=== PATIENT | female | born 1985 | race Hispanic/Latino ===

== ENCOUNTER 2016-05-06 08:17 | Emergency (ER) | payer SELFPAY ==
[2016-05-06 08:30] VITALS: TEMP 98.3; O2SAT 99
[2016-05-06] MEDS ORDERED: KETOROLAC TROMETHAMINE INJ 60 MG/2 ML VIAL IM ONE (08:47)
[2016-05-06] MEDS ORDERED: diazePAM INJ 10 MG/2 ML SYG IM ONE (08:47)
[2016-05-06] MEDS ORDERED: HYDROcodone 10MG/APAP 325MG 1 EA TAB PO ONE (08:48)
--- NOTE | 2016-05-06 08:51 | ED.PDOC ---
History of Present Illness - General Chief Complaint: Back Pain or Injury Stated Complaint: back pain/spasms Time Seen by Provider: 05/06/16 08:41 Source: patient Exam Limitations: no limitations - History of Present Illness Initial Comments: PT REPORTS A 3 WK HISTORY OF LOWER BACK PAIN THAT ACUTELY BECAME WORSE OVER THE PAST 24 HOURS. PT REPORTS SEVERAL YEAR HISTORY OF CHRONIC INTERMITTENT LOW BACK PAIN AND STATES THAT SHE WAS DIAGNOSED WITH SPONDYLOSIS. PT REPORTS USING ALTERNATING ASPIRIN AND TYLENOL WITHOUT RELIEF. Timing/Duration: constant, getting worse Quality/Severity: severe, dullness, radiation - TO BILATERAL HIPS Back Pain Location: lumbar spine Improving Factors: immobilization, medication Worsening Factors: movement Associated Symptoms: muscle spasms Allergies/Adverse Reactions: Allergies NO KNOWN ALLERGY Allergy (Verified 05/06/16 08:30) Home Medications: Ambulatory Orders Acetaminophen W/ Codeine [Tylenol W/ CODEINE #3] 1 ea PO Q4HR PRN #24 05/06/16 Diazepam [Valium] 2 mg PO Q6HR PRN #14 tab 05/06/16 Ibuprofen 800 mg PO Q8HR PRN #30 tab 05/06/16 Review of Systems - Review of Systems Constitutional: Denies: chills, fever Gastrointestinal/Abdominal: Denies: abdominal pain, diarrhea Genitourinary: Denies: dysuria, frequency Musculoskeletal: States: see HPI, back pain, muscle pain. Denies: joint pain Skin: Denies: change in color, rash Neurological: Denies: numbness, paresthesia Past Medical History (General) - Patient Medical History Hx Other - free text: SPONDYLOSIS - Vaccination History Hx Influenza Vaccination: No - Social History Hx Tobacco Use: No - Female History Patient is a Female of Child Bearing Age (10 -59 yrs old): Yes Family Medical History - Family History Mother Family History: Unknown Living Status: Unknown Physical Exam - Physical Exam General Appearance: Alert, Obvious distress, Well Developed, Well Groomed Gastrointestinal/Abdominal: non tender, soft Back Exam: normal inspection, muscle spasm, vertebral tenderness - DIFFUSE LUMBAR TENDERNESS Extremity Exam: no evidence of injury, normal range of motion Neurologic: no motor/sensory deficits, normal mood/affect, oriented x 3 Skin Exam: normal color, warm/dry Progress - Progress Progress: 05/06/16 09:48 PT GIVEN IM TORADOL, IM VALIUM, AND PO NORCO. PT REPORTS SIGNIFICANT IMPROVEMENT IN PAIN, NOW RATING IT AT A 4/10. PT INSTRUCTED TO REFRAIN FROM HEAVY LIFTING OR STRENUOUS ACTIVITY AND REST MUCH POSSIBLE. PT INSTRUCTED TO FOLLOW UP WITH PCP AND RETURN FOR WORSENING OR NEW SYMPTOMS. - Results/Orders Results/Orders: Laboratory Tests 05/06/16 05/06/16 08:48 09:04 Urine Color Yellow Urine Appearance Clear Urine pH 7.0 Ur Specific [place] 1.015 Urine Protein Negative Urine Glucose (UA) Negative Urine Ketones Negative Urine Blood Trace-lysed H Urine Nitrite Negative Urine Bilirubin Negative Urine Urobilinogen 0.2 Ur Leukocyte Esterase Negative Urine RBC 3-5 H Urine WBC 0-1 Ur Epithelial Cells 0-1 Urine Bacteria 0 Urine HCG, Qual Negative Departure - Departure Clinical Impression: Low back pain associated with a spinal disorder other than radiculopathy or spinal stenosis Spondylosis Qualifiers: Spinal region: lumbar Time of Disposition: 09:52 Disposition: Discharge to Home or Self Care Condition: Good Departure Forms: ED Discharge - Pt. Copy, Patient Portal Self Enrollment Instructions: DI for Low Back Pain Diet: resume usual diet Activity: increase activity as tolerated, no lifting Referrals: [facility] [Provider Group] - 1-2 Weeks Prescriptions: Acetaminophen W/ Codeine [Tylenol W/ CODEINE #3] 1 ea PO Q4HR PRN #24 PRN Reason: Pain Diazepam [Valium] 2 mg PO Q6HR PRN #14 tab PRN Reason: Muscle Spasms Ibuprofen 800 mg PO Q8HR PRN #30 tab PRN Reason: Pain Home Medications: Ambulatory Orders Acetaminophen W/ Codeine [Tylenol W/ CODEINE #3] 1 ea PO Q4HR PRN #24 05/06/16 Diazepam [Valium] 2 mg PO Q6HR PRN #14 tab 05/06/16 Ibuprofen 800 mg PO Q8HR PRN #30 tab 05/06/16
[2016-05-06 10:06] VITALS: BP 109/73
== END 2016-05-06 10:06 | disposition home or self-care (01) ==
LOC: ER 08:17
DX: M43.06 Spondylolysis, lumbar region (principal)
CPT/HCPCS: 81001; 81025; J1885; J3360

== ENCOUNTER → 2020-04-07 | Outpatient (CLI) | payer BC | LOC: GMAL 15:18 | PROVIDERS: ATTEND Family Medicine | DX: E53.8 Deficiency of other specified B group vitamins (principal); R53.82 Chronic fatigue, unspecified; E78.5 Hyperlipidemia, unspecified; E55.9 Vitamin D deficiency, unspecified ==